=== PATIENT | female | born 1970 | race Hispanic/Latino ===

== ENCOUNTER 2020-09-20 09:25 | Day surgery (SDC) | payer MEDICAID ==
[~2020-09-20 09:25] MED LIST: SODIUM CHLORIDE 0.9% 1000 ML 1,000 ML IV SCH
[2020-09-20] MEDS ORDERED: LIDOCAINE MPF (2%) 20 MG/1 ML VIAL 5 ML ONE (09:45)
--- NOTE | 2020-09-20 10:12 | Anesthesia Consultation ---
Anesthesia Consult and Med Hx Date of service: 09/20/20 - Airway Intubation Access Assessment: Possibly Difficult (not cooperative with airway exam. 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 Medical hx and anesthesia consent obtained from patient's mother at bedside.
--- NOTE | 2020-09-20 10:13 | Anesthesia Day of Surgery ---
Anesthesia Day of Surgery - Day of Surgery Patient Examined: Yes Patient H&P Reviewed: Yes Patient is NPO: Yes
[2020-09-20] MEDS ORDERED: MIDAZOLAM 2 MG/2 ML INJ ONE (10:40)
[2020-09-20] MEDS ORDERED: propofoL 200 MG/20 ML VIAL IV ONE ×2 (10:41→10:54)
--- NOTE | 2020-09-20 11:20 | Procedure Note ---
Date of procedure: 09/20/20 Pre-op diagnosis: Adult failure to Thrive/Dysphagia/ H/O Tuberous Sclesosis Post-op diagnosis: other (S/P PEG Placement/ Patent Pylorus/ Multiple, Gastric Polyps (Proximal Stomach)/ Mild, Benign, Esophageal Stenosis (s/p Esophageal Balloon dilation)) Procedure: EGD with Biopsy and S/P Esophageal Balloon Dilation (20 mm) and S/P PEG Placement Anesthesia: MAC Surgeon: QUAN GALLAGHER Estimated blood loss: minimal Pathology: list Specimen disposition: to lab Condition: stable Disposition: same day (Resume home medication. May use the PEG for medication and feeding once the patient returns home. Avoid aspirin and NSAID and anticoagulants for 4 days; otherwise resume home medication and follow up in 1 to 2 weeks ([phone]).)
--- NOTE | 2020-09-20 11:38 | Operative Report ---
PROCEDURE: Esophagogastroduodenoscopy with biopsy status post esophageal balloon dilation as well as PEG placement. INDICATIONS: This is a 50-year-old white female with an underlying history of tuberous sclerosis and adult failure to thrive. The patient previously had a PEG, which had since been taken out. Lately, the patient has been having progressively losing weight because of poor oral intake. She also has problems with dysphagia and had an EGD with balloon dilation, biopsy and PEG placement done to help with her long-term situation. DESCRIPTION OF PROCEDURE: The procedure was done after getting informed consent with MAC anesthesia. The patient was given Levaquin 500 mg IV since she has an allergy of PENICILLIN ALLERGY. Instrument was passed through the hypopharynx into the esophagus, which did show some mild benign esophageal stenosis. This was dilated with 20 mm balloon that was maintained for a minute. Once the esophageal dilation was done, the scope had to be withdrawn since the balloon could not be completely deflated and had to be reintroduced. There were numerous gastric polyps noted in the proximal stomach. The pylorus was patent. The duodenum in the first and second portion appeared normal. A few of the polyps were biopsied to make sure that they were not of the tubular adenoma type. An area of the anterior abdominal wall was then cleaned and draped in standard fashion. It was infiltrated with a local anesthetic. Small incision was made and the trocar from the 20-[place] kit was passed through the incision into the cavity of the stomach. A wire was passed through the hollow of the needle, which was then caught with the polypectomy snare and brought out through the mouth. This was then tied to the 20-[place] tube, which was then pulled into place. The skin marking was at about 2 cm. The scope was reintroduced and the PEG was noted to be in good position with minimal bleeding. ASSESSMENT: Adult failure to thrive, dysphagia, history of tubular sclerosis, multiple gastric polyps in the proximal colon, which was biopsied, mild benign esophageal stenosis, status post balloon dilation with a 20 mm balloon status post percutaneous endoscopic gastrostomy placement and patent pylorus. PLAN: To have the patient avoid aspirin and aspirin-related products for the next few days. Resume home medication. The PEG may be used for medication and for feeding by the time the patient goes back home and have the patient follow up in 1-2 weeks' time. The procedure was done in the GI lab with assistance of the GI lab team, which included the GI nurse with Krystal sinclair and with the assistance of anesthesia. JOB# [id number] VANESSA/ALEXANDREA
[2020-09-20 16:00] VITALS: BP 112/70
--- NOTE | 2020-09-20 17:50 | Post Anesthesia Evaluation ---
- Post Anesthesia Evaluation Patient Participated: Yes Airway Patent: Yes Stable Respiratory Function: Yes Nausea/Vomiting: No Temp > 96.8F: Yes Pain Manageable: Yes Adequeate Hydration: Yes Anesthesia Complications: No
== END 2020-09-20 09:26 | disposition home or self-care (01) ==
LOC: GIO 09:25
DX: R13.10 Dysphagia, unspecified (principal); K22.2 Esophageal obstruction; R63.4 Abnormal weight loss; R62.7 Adult failure to thrive; K31.89 Other diseases of stomach and duodenum; N28.89 Other specified disorders of kidney and ureter; Z88.0 Allergy status to penicillin; Z79.899 Other long term (current) drug therapy; Z98.890 Other specified postprocedural states
CPT/HCPCS: 43239; 43246; 43249; 88305; 88342; C1726; J1956; J2250; J2704; J7030